=== PATIENT | male | born 2000 | race Caucasian/White ===

== ENCOUNTER → 2025-10-28 07:07 | Outpatient (CLI) | payer OTHER, SELFPAY ==
--- NOTE | 2025-10-28 07:11 | DI.MRI.S_ITS ---
PROCEDURE: MR KNEE RT WO CON INDICATIONS: RT KNEE PAIN TECHNIQUE: Noncontrast sagittal PD fast spin echo and T2 fast spin echo with fat saturation, sagittal 3-D FLASH with fat saturation; coronal T1 spin echo and PD fast spin echo with fat saturation, and axial PD fast spin echo with fat saturation through the knee. COMPARISON: None. FINDINGS: Quality: Adequate Menisci: Medial meniscus: Intact Lateral meniscus: Free edge tearing of the posterior horn and suspect horizontal undersurface tear of the body. Cruciate ligaments: Anterior cruciate ligament: Intact Posterior cruciate ligament: Intact Collateral ligaments: Medial collateral ligament: Intact Lateral collateral ligament complex: Intact Extensor mechanism: Quadriceps tendon: Intact Patellar tendon: Intact Retinaculum: Intact Fat pads: Unremarkable Cartilage: No focal defect. Bones: No fracture. Fluid spaces: Joint: Physiologic fluid. Popliteal cyst: None Other: None IMPRESSION: Multifocal lateral meniscus tearing. Dictated by: Steve Vela M.D. on 10/28/2025 at 12:57 Approved by: Steve Vela M.D. on 10/28/2025 at 13:08
== END ==
LOC: MRI 07:09
PROVIDERS: Visit Provider Nurse Practitioner Family
DX: S83.281A Other tear of lateral meniscus, current injury, right knee, initial encounter (principal); M25.561 Pain in right knee
CPT/HCPCS: 73721